=== PATIENT | male | born 1955 | race Caucasian/White ===

== ENCOUNTER 2016-11-02 15:28 | Emergency (ER) | payer BC ==
--- NOTE | 2016-11-02 15:32 | PDOC ---
History of Present Illness - General History Source: Patient Exam Limitations: No Limitations - History of Present Illness Initial Comments: 11/02/16 16:11 The patient is a 61 year old male with a significant past medical history of diverticulitis, appendicitis, cardiac stent, who presents to the ED with chest discomfort since this morning. Patient states he was eating breakfast this morning when he started experiencing throat pain. Patient states he started experiencing chest pain shortly after. Patient states the pain has dissipated upon interview. Patient denies SOB, ear pain, fever, cough, chills, nausea, vomiting, diarrhea. Patient states he had normal stress test done on Thursday. <Anatoliy Harding - Last Filed: 11/02/16 16:11> <Agnes Wheeler - Last Filed: 11/04/16 11:40> - General Chief Complaint: Chest Pain Stated Complaint: CHEST PAIN, COUGH,SORE THROAT Time Seen by Provider: 11/02/16 15:31 Past History <Anatoliy Harding - Last Filed: 11/02/16 16:11> - Past Medical History Anemia: No Asthma: No Cancer: No Cardiac Disorders: Yes (HX OF SOB HAD CARDIAC CATH WITH STENT X1) CVA: No COPD: No CHF: No Dementia: No Diabetes: No GI Disorders: Yes (DIVERTICULITIS) Disorders: No HTN: No Hypercholesterolemia: No Liver Disease: No Seizures: No Thyroid Disease: No - Surgical History Abdominal Surgery: Yes (COLON RESECTION FOR DIVERTICULITIS) Appendectomy: Yes Cardiac Surgery: Yes (CARDIAC CATH WITH STENT X1) Cholecystectomy: No Lung Surgery: No Neurologic Surgery: No Orthopedic Surgery: No - Psycho/Social/Smoking Cessation Hx Anxiety: No Suicidal Ideation: No Smoking Status: Yes Smoking History: Former smoker Have you smoked in the past 12 months: No Number of Cigarettes Smoked Daily: 20 Hx Alcohol Use: No Drug/Substance Use Hx: No Substance Use Type: None Hx Substance Use Treatment: No <Agnes Wheeler - Last Filed: 11/04/16 11:40> - Past Medical History Allergies/Adverse Reactions: Allergies Allergy/AdvReac Type Severity Reaction Status Date / Time Iodinated Contrast- Oral and Allergy Severe Hives Verified 11/02/16 15:28 IV Dye Home Medications: Ambulatory Orders NK [No Known Home Medication] 01/29/14 Review of Systems - Review of Systems Able to Perform ROS?: Yes Comments:: 11/02/16 16:12 GENERAL/CONSTITUTIONAL: No fever or chills. No weakness. HEAD, EYES, EARS, NOSE AND THROAT: + throat pain. No change in vision. No ear pain or discharge. CARDIOVASCULAR: + chest discomfort. No shortness of breath. RESPIRATORY: No cough, wheezing, or hemoptysis. GASTROINTESTINAL: No nausea, vomiting, diarrhea or constipation. GENITOURINARY: No dysuria, frequency, or change in urination. MUSCULOSKELETAL: No joint or muscle swelling or pain. No neck or back pain. SKIN: No rash NEUROLOGIC: No headache, vertigo, loss of consciousness, or change in strength/ sensation. ENDOCRINE: No increased thirst. No abnormal weight change. HEMATOLOGIC/LYMPHATIC: No anemia, easy bleeding, or history of blood clots. ALLERGIC/IMMUNOLOGIC: No hives or skin allergy. <Anatoliy Harding - Last Filed: 11/02/16 16:11> *Physical Exam - Vital Signs Last Vital Signs Temp Pulse Resp BP Pulse Ox 98.6 F 106 H 16 155/99 96 11/02/16 15:28 11/02/16 15:28 11/02/16 15:28 11/02/16 15:28 11/02/16 15:28 - Physical Exam Comments: 11/02/16 16:13 GENERAL: Awake, alert, and fully oriented, in no acute distress HEAD: No signs of trauma EYES: PERRLA, EOMI, sclera anicteric, conjunctiva clear ENT: Auricles normal inspection, hearing grossly normal, nares patent, oropharynx clear without exudates. Moist mucosa NECK: Normal ROM, supple, no lymphadenopathy, JVD, or masses LUNGS: Breath sounds equal, clear to auscultation bilaterally. No wheezes, and no crackles HEART: Regular rate and rhythm, normal S1 and S2, no murmurs, rubs or gallops ABDOMEN: Soft, nontender, normoactive bowel sounds. No guarding, no rebound. No masses EXTREMITIES: Normal range of motion, no edema. No clubbing or cyanosis. No cords, erythema, or tenderness NEUROLOGICAL: Cranial nerves II through XII grossly intact. Normal speech, normal gait SKIN: Warm, Dry, normal turgor, no rashes or lesions noted. <Anatoliy Harding - Last Filed: 11/02/16 16:11> ED Treatment Course - LABORATORY CBC & Chemistry Diagram: 11/02/16 16:25 11/02/16 16:25 <Agnes Wheeler - Last Filed: 11/04/16 11:40> Medical Decision Making - Medical Decision Making 11/02/16 18:24 Patient presents to the ED complaining of >6 hours of chest pain and sore throat that has now resolved. Chest pain is sharp, pleuritic and worse with movement of the torso. History of CAD but with negative stress test 4 months ago. LAbs, including troponin, are remarkable only for mild elevation in wBC count. EKG shows no evidence of ischemia. Tachycardia now resolving after toradol and fluids. Will discharge home. 11/04/16 11:39 <Agnes Wheeler - Last Filed: 11/04/16 11:40> *DC/Admit/Observation/Transfer - Attestations Scribe Attestion: 11/02/16 16:13 Documentation prepared by Anatoliy Harding, acting as medical pathology teacher for Agnes Wheeler MD, . <Anatoliy Harding - Last Filed: 11/02/16 16:11> - Discharge Dispostion Admit: No <Agnes Wheeler - Last Filed: 11/04/16 11:40> Diagnosis at time of Disposition: Chest pain - Discharge Dispostion Disposition: HOME Condition at time of disposition: Good - Patient Instructions Printed Discharge Instructions: DI for Atypical Chest Pain Additional Instructions: return to the ED for severe chest pain or shortness of breath, high fever, nausea, vomiting or passing out, other new or changing symptoms. Follow up with your doctor within two days. - Post Discharge Activity Work/School Note: Back to Work
[2016-11-02 15:35] VITALS: TEMP 98.6; BMI 27.2
[2016-11-02 16:54] LABS: ALBUMIN 4.1 g/dl (3.5-5.0); ALK PHOS 73 U/L (32-92); ANION GAP 7 (8-16); BILIRUBIN,TOTAL 0.8 mg/dl (0.2-1.0); CALCIUM 9.3 mg/dl (8.4-10.2); CO2 29 mmol/L (22-28); CPK 98 IU/L (39-308); CREATININE 1.3 mg/dl (0.6-1.3); GLUCOSE,RANDOM 252 mg/dl (74-106); SGOT/AST 21 U/L (10-42); SGPT/ALT 21 U/L (10-40); TOT PROT 7.2 g/dl (6.4-8.3)
[2016-11-02 16:56] LABS: BASOPHIL 0.3 % (0-2.0); EOSINOPHIL 0.5 % (0-4.5); MCH 31.8 pg (25.7-33.7); MCHC 34.9 g/dl (32.0-35.9); MEAN CELL VOLUME 91.1 fl (80-96); MEAN PLT VOLUME 7.3 fl (7.5-11.1); NEUTROPHILS 80.9 % (42.8-82.8); PLATELET COUNT 309 K/MM3 (134-434); WHITE BLOOD COUNT 13.2 K/mm3 (4.0-10.8)
[2016-11-02 17:09] LABS: TROPONIN I (DFP) < 0.03 ng/ml (0.03-0.50)
[2016-11-02] MEDS ORDERED: SODIUM CHLORIDE 0.9% 1000 ML INFUS.BAG IV ONE (17:15)
[2016-11-02] MEDS ORDERED: KETOROLAC TROMETHAMINE 30 MG/1 ML VIAL IVPUSH ONE (17:33)
[2016-11-02] MEDS ORDERED: KETOROLAC TROMETHAMINE 30 MG/1 ML VIAL ONE (17:37)
[2016-11-02 19:06] VITALS: BP 132/58; PULSE 98
--- NOTE | 2016-11-04 14:04 | EKG ---
Test Reason : Blood Pressure : / mmHG Vent. Rate : 104 BPM Atrial Rate : 104 BPM P-R Int : 130 ms QRS Dur : 090 ms QT Int : 336 ms P-R-T Axes : 039 -06 045 degrees QTc Int : 441 ms SINUS TACHYCARDIA MINIMAL VOLTAGE CRITERIA FOR LVH, MAY BE NORMAL VARIANT BORDERLINE ECG NO PREVIOUS ECGS AVAILABLE REPEAT EKG IF CLINICALLY INDICATED Confirmed by SEVERO RHOADES MD ([id number] on 11/04/2016 2:03:41 PM Referred By: KEISHA Confirmed By:SEVERO RHOADES MD
== END 2016-11-02 19:05 | disposition home or self-care (01) ==
LOC: FER 15:28
PROC: 3E0333Z Introduction of Anti-inflammatory into Peripheral Vein, Percutaneous Approach (ICD-10-PCS; principal; 2016-11-02)
PROC: 3E0337Z Introduction of Electrolytic and Water Balance Substance into Peripheral Vein, Percutaneous Approach (ICD-10-PCS; 2016-11-02)
DX: R07.89 Other chest pain (principal); Z95.5 Presence of coronary angioplasty implant and graft; K57.92 Diverticulitis of intestine, part unspecified, without perforation or abscess without bleeding; Z87.891 Personal history of nicotine dependence
CPT/HCPCS: 36415; 71020-TC; 80053; 84484; 85025; 93005; 93010; 99285-25

== ENCOUNTER 2018-01-12 00:41 | Observation (INO) | payer BC ==
--- NOTE | 2018-01-12 00:43 | PDOC ---
History of Present Illness - General Chief Complaint: Pain, Acute Stated Complaint: PRODUCTIVE COUGH/ CHEST PAIN Time Seen by Provider: 01/12/18 00:42 History Source: Patient Exam Limitations: No Limitations - History of Present Illness Initial Comments: 01/12/18 00:53 This is a 62-year-old male with history significant for hypertension, diabetes , smoking history, coronary artery disease status post stent in the past. Patient comes in complaining of 2 days of not feeling well. Patient is complaining of midsternal chest pain associated with some nausea and difficulty breathing. Patient also is complaining of nasal congestion, recent upper respiratory tract infection, cough of productive yellow phlegm. Patient has a history of COPD. Patient is very anxious on arrival in the emergency room and crying and visibly upset. Patient said the pain is worse when he coughs or takes a deep breath. PAST MEDICAL HISTORY: As per history of present illness PAST SURGICAL HISTORY: no significant history FAMILY HISTORY: no pertinant history SOCIAL HISTORY: Pt lives with family and is employed. MEDICATIONS: reviewed ALLERGIES: As per nursing notes ROS General: No fevers or chills, no weakness, no weight loss HEENT: No change in vision. No sore throat,. No ear pain CardioVascular: + chest pain, +shortness of breath Respiratory:+ cough, no wheezing. Gastrointestinal: + nausea, + vomiting, no diarrhea or constipation, No rectal bleeding Genitourinary: No dysuria, hematuria, or frequency Musculoskeletal: . No joint pain or swelling Neurologic: No headache, vertigo, dizziness or loss of consciousness Psychiatric: nor depression Skin: No rashes or easy bruising Endocrine: no increased thirst or abnormal weight change Allergic: no skin or latex allergy All other systems reviewed and normal Exam: General: Well-nourished well-developed individual, moderately acute distress and very anxious HEENT: Throat: Normal, tonsils normal, no erythema or exudate, nasal congestion Neck: Supple, no meningeal signs, no lymphadenopathy Eyes::Pupils equal reactive and round, extraocular motion intact Chest: Pain reproduced on palpation of the anterior chest Cardiac: S1-S2 normal, regular rate and rhythm, no murmurs rubs or gallops, mild tachycardia Respiratory: Lungs clear to auscultation bilateral Abdomen: Soft, nondistended, normal bowel sounds, there is no tenderness on palpation diffusely Extremities: Warm, dry, no cyanosis, clubbing, or edema Skin: No rashes Neuro: Alert and oriented x3, CN II - XII intact, nonfocal exam with normal strength, normal sensation, normal reflexes, normal gait, Psych: Anxious mood, normal affect Assessment and plan: This is 62-year-old male with multiple cardiac risk factors who comes in complaining of chest pain, nausea and shortness of breath. Patient does have multiple risk factors and his heart squares 4. Pain and symptoms resolved post-some Xanax so most likely there was a large anxiety component of it however patient will be brought in to a telemetry bed to be ruled out. EKG shows sinus tachycardia at a rate of 120, normal intervals, no acute ST-T wave changes otherwise normal EKG Chest x-ray no acute pathology Past History - Past Medical History Allergies/Adverse Reactions: Allergies Allergy/AdvReac Type Severity Reaction Status Date / Time Iodinated Contrast- Oral and Allergy Severe Hives Verified 01/12/18 00:43 IV Dye Home Medications: Ambulatory Orders Albuterol Sulfate Inhaler - [Ventolin Hfa Inhaler -] 1 - 2 inh PO QID 01/12/18 Atorvastatin Ca [Lipitor] 10 mg PO HS 01/12/18 Doxazosin Mesylate 2 mg PO DAILY 01/12/18 Doxycycline Hyclate 100 mg PO DAILY 01/12/18 Glipizide 10 mg PO DAILY 01/12/18 Anemia: No Asthma: No Cancer: No Cardiac Disorders: Yes (HX OF SOB HAD CARDIAC CATH WITH STENT X1) CVA: No COPD: No CHF: No Dementia: No Diabetes: No GI Disorders: Yes (DIVERTICULITIS) Disorders: No HTN: No Hypercholesterolemia: No Liver Disease: No Seizures: No Thyroid Disease: No - Surgical History Abdominal Surgery: Yes (COLON RESECTION FOR DIVERTICULITIS) Appendectomy: Yes Cardiac Surgery: Yes (CARDIAC CATH WITH STENT X1) Cholecystectomy: No Lung Surgery: No Neurologic Surgery: No Orthopedic Surgery: No - Suicide/Smoking/Psychosocial Hx Smoking Status: Yes Smoking History: Former smoker Have you smoked in the past 12 months: No Number of Cigarettes Smoked Daily: 20 If you are a former smoker, when did you quit?: 12 yrs ago Hx Alcohol Use: No Drug/Substance Use Hx: No Substance Use Type: None Hx Substance Use Treatment: No Heart Score/ECG Review - History History: Moderately suspicious - Electrocardiogram EKG: Normal - Age Age: 45-65 - Risk Factors Risk Factors Heart Score: Yes Hx Hypercholesterolemia, Yes Hx Diabetes, Yes Smoking History, Yes Positive family hx of cardiac disease Based on the list above the patient has:: >/=3 risk factors or Hx atherosclerotic disease - Troponin Troponin: </= normal limit - Score Heart Score - Total: 4 ED Treatment Course - LABORATORY CBC & Chemistry Diagram: 01/12/18 01:06 01/12/18 01:06 *DC/Admit/Observation/Transfer Diagnosis at time of Disposition: Chest pain - Discharge Dispostion Condition at time of disposition: Stable Decision to Admit order: Yes - Referrals Referrals: Nazia Corea [Primary Care Provider] - - Patient Instructions - Post Discharge Activity
[2018-01-12] MEDS ORDERED: ALPRAZolam 1 MG TABLET PO PRN (00:52)
[2018-01-12] MEDS ORDERED: ONDANSETRON 4 MG/2 ML VIAL IVPB ONE (00:52)
[2018-01-12] MEDS ORDERED: SODIUM CHLORIDE 1,000 ML IV ONE (00:52)
[2018-01-12] MEDS ORDERED: ONDANSETRON 4 MG/2 ML VIAL ONE (02:10)
[2018-01-12] MEDS ORDERED: ALPRAZolam 0.25 MG TABLET ONE (02:10)
[2018-01-12] MEDS ORDERED: ALPRAZolam 1 MG TABLET PO STA (02:19)
[2018-01-12 02:48] LABS: BASO % 0.2 % (0-2.0); EOS % 1.4 % (0-4.5); HEMATOCRIT 45.3 % (35.4-49); HEMOGLOBIN 15.4 GM/dL (11.7-16.9); LYMPH % 11.8 % (8-40); MEAN CELL VOLUME 91.1 fl (80-96); MEAN PLT VOLUME 7.7 fl (7.5-11.1); MONO % 11.3 % (3.8-10.2); NEUT % 75.3 % (42.8-82.8); PLATELET COUNT 220 K/MM3 (134-434); RBC 4.98 M/mm3 (4.00-5.60); RDW 13.3 % (11.9-15.9); WHITE BLOOD COUNT 9.5 K/mm3 (4.0-10.0)
[2018-01-12 03:19] LABS: ALBUMIN 3.5 g/dl (3.4-5.0); ALK PHOS 78 U/L (45-117); ANION GAP 8 MMOL/L (8-16); BILIRUBIN,TOTAL 0.7 mg/dL (0.2-1); BLOOD UREA NITROGEN 13 mg/dL (7-18); CALCIUM 8.5 mg/dL (8.5-10.1); CHLORIDE 106 mmol/L (98-107); CO2 25 mmol/L (21-32); CREATININE 1.2 mg/dL (0.55-1.3); GLUCOSE,RANDOM 198 mg/dL (74-106); SGOT/AST 17 U/L (15-37); SGPT/ALT 28 U/L (13-61); SODIUM 138 mmol/L (136-145); TOT PROT 6.7 g/dl (6.4-8.2)
[2018-01-12] MEDS ORDERED: ASPIRIN 81 MG CHEWABLE TABLETS PO ONE (04:05)
[2018-01-12 04:55] VITALS: BMI 28.2
--- NOTE | 2018-01-12 08:20 | HP ---
CHIEF COMPLAINT: cough and chest pain PCP: Dr Corea rubber process hand: Dr Benítez HISTORY OF PRESENT ILLNESS: Patient is a 62 y/o obese male with a past medical history of copd (former smoker), diverticulitis, CAD (s/p stent), and hypertension. Patient reports 3 days of moist cough and tactile fever. Patient reports the cough has worsened within the past 24 hours with substernal non-radiating chest pain and shortness of breath. He reports tactile fever yesterday evening. ER course was notable for: (1)chest xray: no infilitrate no effusions noted (2)troponin x 1 wnl (3)spo2 93% on room air Recent Travel: none PAST MEDICAL HISTORY: see hpi PAST SURGICAL HISTORY: rotar cuff, perirectal abscess surgery Social History: resides at home with Smoking:quit 13 years ago Alcohol:none Drugs: none Family History: mother and father -->complications from diabetes Allergies Iodinated Contrast- Oral and IV Dye Allergy (Severe, Verified 01/12/18 00:43) Hives HOME MEDICATIONS: Home Medications Medication Instructions Recorded Albuterol Sulfate Inhaler - 1 - 2 inh PO QID 01/12/18 [Ventolin Hfa Inhaler -] Atorvastatin Ca [Lipitor] 10 mg PO HS 01/12/18 Doxazosin Mesylate 2 mg PO DAILY 01/12/18 Doxycycline Hyclate 100 mg PO DAILY 01/12/18 Glipizide 10 mg PO DAILY 01/12/18 REVIEW OF SYSTEMS CONSTITUTIONAL: present: fever, chills, diaphoresis, generalized weakness, malaise Absent: loss of appetite, weight change HEENT: Absent: rhinorrhea, nasal congestion, throat pain, throat swelling, difficulty swallowing, mouth swelling, ear pain, eye pain, visual changes CARDIOVASCULAR: present: chest pain Absent: syncope, palpitations, irregular heart rate, lightheadedness, peripheral edema RESPIRATORY: Present: cough, shortness of breath, wheezing Absent: dyspnea with exertion, orthopnea, stridor, hemoptysis GASTROINTESTINAL: Absent: abdominal pain, abdominal distension, nausea, vomiting, diarrhea, constipation, melena, hematochezia GENITOURINARY: Absent: dysuria, frequency, urgency, hesitancy, hematuria, flank pain, genital pain MUSCULOSKELETAL: Absent: myalgia, arthralgia, joint swelling, back pain, neck pain SKIN: Absent: rash, itching, pallor HEMATOLOGIC/IMMUNOLOGIC: Absent: easy bleeding, easy bruising, lymphadenopathy, frequent infections ENDOCRINE: Absent: unexplained weight gain, unexplained weight loss, heat intolerance, cold intolerance NEUROLOGIC: Absent: headache, focal weakness or paresthesias, dizziness, unsteady gait, seizure, mental status changes, bladder or bowel incontinence PSYCHIATRIC: Absent: anxiety, depression, suicidal or homicidal ideation, hallucinations. PHYSICAL EXAMINATION Vital Signs - 24 hr 01/12/18 01/12/18 01/12/18 00:44 03:35 03:48 Temperature 98.8 F 98.5 F 98.4 F Pulse Rate 120 H 93 H Pulse Rate [ 106 H Left] Respiratory 18 15 18 Rate Blood Pressure 134/87 116/66 Blood Pressure 121/66 [Right] O2 Sat by Pulse 93 L 93 L Oximetry (%) 01/12/18 04:46 Temperature 98.7 F Pulse Rate 105 H Pulse Rate [ Left] Respiratory 19 Rate Blood Pressure 105/70 Blood Pressure [Right] O2 Sat by Pulse 96 Oximetry (%) GENERAL: Awake, alert, and fully oriented, in no acute distress. HEAD: Normal with no signs of trauma. EYES: Pupils equal, round and reactive to light, extraocular movements intact, sclera anicteric, conjunctiva clear. No lid lag. EARS, NOSE, THROAT: Ears normal, nares patent, oropharynx clear without exudates. Moist mucous membranes. NECK: Normal range of motion, supple without lymphadenopathy, JVD, or masses. LUNGS:course rhonchi to apexes, wheezing to billateral bases, and no crackles. No accessory muscle use. HEART: Regular rate and rhythm, normal S1 and S2 without murmur, rub or gallop. ABDOMEN: Soft, nontender, not distended, normoactive bowel sounds, no guarding, no rebound, no masses. No hepatomegaly or splenomegaly. MUSCULOSKELETAL: Normal range of motion at all joints. No bony deformities or tenderness. No CVA tenderness. UPPER EXTREMITIES: 2+ pulses, warm, well-perfused. No cyanosis. No clubbing. No peripheral edema. LOWER EXTREMITIES: 2+ pulses, warm, well-perfused. No calf tenderness. No peripheral edema. NEUROLOGICAL: Cranial nerves II-XII intact. Normal speech. Normal gait. PSYCHIATRIC: Cooperative. Good eye contact. Appropriate mood and affect. SKIN: Warm, dry, normal turgor, no rashes or lesions noted, normal capillary refill. Laboratory Results - last 24 hr 01/12/18 01/12/18 01/12/18 01:06 01:06 03:35 WBC 9.5 RBC 4.98 Hgb 15.4 Hct 45.3 MCV 91.1 MCH 31.0 MCHC 34.0 RDW 13.3 Plt Count 220 MPV 7.7 Absolute Neuts (auto) 7.1 Neutrophils % 75.3 Lymphocytes % 11.8 Monocytes % 11.3 H Eosinophils % 1.4 Basophils % 0.2 Nucleated RBC % 0 Sodium 138 Potassium 4.0 Chloride 106 Carbon Dioxide 25 Anion Gap 8 BUN 13 Creatinine 1.2 Creat Clearance w eGFR > 60 Random Glucose 198 H Calcium 8.5 Total Bilirubin 0.7 AST 17 ALT 28 Alkaline Phosphatase 78 Creatine Kinase 194 Creatine Kinase Index 0.5 CK-MB (CK-2) < 1.0 Troponin I < 0.02 B-Natriuretic Peptide 34.4 Total Protein 6.7 Albumin 3.5 ASSESSMENT/PLAN: 1) pulm copd exacerbation - wheezing noted on exam, start standing combivent nebs and solumedrol with taper - chest xray reviewed, no infilitrates no effusion noted, hx of tobacco use, will order ct of chest - keep spo2 above 92% with supplemental O2 as needed - pending influenza swab 2) cardiovascular chest pain r/o acs cad (s/p stent) hypertension - pt reports chest discomfort after coughing, troponin x 2 wnl, pending 3rd - continuous cardiac monitoring - continue doxazosin - pending lipid panel, continue daily asa - appreciate cardiology input 3) endo DM - pending hgb a1c - continue glipizide f/e/n - low sodium/diabetic diet - replete magnesium dispo: pt requires obsv admission Visit type - Emergency Visit Emergency Visit: Yes ED Registration Date: 01/12/18 Care time: The patient presented to the Emergency Department on the above date and was hospitalized for further evaluation of their emergent condition. - New Patient This patient is new to me today: Yes Date on this admission: 01/12/18 - Critical Care Critical Care patient: No
[2018-01-12] MEDS: glipiZIDE 5 MG TABLET (FP) PO SCH (08:33)
[2018-01-12 08:53] LABS: BASO % 0.1 % (0-2.0); HEMOGLOBIN 14.1 GM/dl (11.7-16.9); LYMPH % 16.7 % (8-40); MCH 31.9 pg (25.7-33.7); MCHC 34.5 g/dl (32.0-35.9); MEAN CELL VOLUME 92.5 fl (80-96); MEAN PLT VOLUME 7.5 fl (7.5-11.1); MONO % 11.3 % (3.8-10.2); NEUT % 69.9 % (42.8-82.8); PLATELET COUNT 194 K/MM3 (134-434); RBC 4.43 M/mm3 (4.00-5.60); RDW 12.6 % (11.9-15.9); WHITE BLOOD COUNT 7.5 K/mm3 (4.0-10.8)
[2018-01-12 09:06] LABS: ANION GAP 7 MMOL/L (8-16); BLOOD UREA NITROGEN 11 mg/dl (7-18); CHLORIDE 105 mmol/L (98-107); CO2 26 mmol/L (22-28); GLUCOSE,RANDOM 115 mg/dl (74-106); MAGNESIUM 1.5 mg/dL (1.8-2.4); PHOSPHOROUS 2.9 mg/dl (2.5-4.6); POTASSIUM 3.5 mmol/L (3.5-5.1); SODIUM 138 mmol/L (136-145)
[2018-01-12] MEDS ORDERED: MAGNESIUM SULFATE 2 GM in SODIUM CHLORIDE 100 ML IVPB ONE (09:19)
[2018-01-12 09:37] LABS: CHOLESTEROL 128 mg/dl; HDL CHOLESTEROL 40 mg/dl (29-89); LDL CHOLESTEROL (ONLY DFH) 68 mg/dl; TRIGLYCERIDES 102 mg/dl (35-160)
[2018-01-12] MEDS ORDERED: ACETAMINOPHEN 1000 MG/100 ML VIAL (NON FORMULARY) IVPB ONE (09:45)
[2018-01-12] MEDS ORDERED: MAGNESIUM SULFATE IN WATER 2 GM/50 ML IVPB IVPB ONE (10:00)
[2018-01-12] MEDS ORDERED: SODIUM CHLORIDE 0.45%/POT 20 MEQ/1,000 ML INFUS.BAG IV SCH (10:45)
[2018-01-12] MEDS: ALBUTEROL SO4 2.5/IPRATROPIUM 0.5 INH SOL 3 ML VIAL.NEB. NEB SCH ×3 (10:51→21:23)
[2018-01-12] MEDS: DOXAZOSIN MESYLATE 2 MG TABLET (FP) PO SCH (10:56)
[2018-01-12] MEDS: methylPREDNISolone NA SUCC 40 MG/1 ML VIAL IVPUSH SCH ×2 (12:00→17:19)
[2018-01-12 12:39] LABS: INR 1.16 (0.82-1.09)
--- NOTE | 2018-01-12 15:18 | ECHO ---
Name: FRANCISCO ELLEN Exam:Adult Echocardiogram Study Date: 01/12/2018 09:30 AM Age: 62 yrs Reason For Study: Chest pain Height: 67 in Weight: 185 lb BSA: 2.0 m2 MMode/2D Measurements & Calculations IVSd: 0.88 cm Ao root diam: 3.0 cm LVIDd: 4.8 cm LA dimension: 3.3 cm LVIDs: 3.1 cm LVPWd: 0.83 cm EDV(Teich): 109.6 ml ESV(Teich): 39.2 ml Doppler Measurements & Calculations MV E max diane: 71.1 cm/sec MV A max diane: 92.4 cm/sec MV dec slope: 515.5 cm/sec2 MV E/A: 0.77 Ao V2 max: 127.2 cm/sec LV V1 max P.0 mmHg Ao max P.5 mmHg LV V1 max: 86.4 cm/sec Procedure The study was technically difficult with many images being suboptimal in quality. Left Ventricle The left ventricular size, thickness and function are normal. LVEF = 60%. E/A reversal consistent wit h but not diagnostic of poor LV compliance. Right Ventricle The right ventricle is normal in size and function. Atria The left atrium is not well visualized. Mitral Valve The mitral valve is normal. Tricuspid Valve The tricuspid valve is normal. No tricuspid regurgitation. There was insufficient TR detected to calc ulate RV systolic pressure. Aortic Valve There is moderate aortic sclerosis.;. Pulmonic Valve The pulmonic valve is not well visualized. Great Vessels The aortic root is normal size. Pericardium/Pleura There is no pericardial effusion. Interpretation Summary The study was technically difficult with many images being suboptimal in quality. The left ventricular size, thickness and function are normal. LVEF = 60%. The right ventricle is normal in size and function. The left atrium is not well visualized. There is moderate aortic sclerosis.; The mitral valve is normal. MD Missy Benítez 01/12/2018 03:18 PM
[2018-01-12 15:31] LABS: URINE APPEARANCE Clear; URINE BILIRUBIN Negative (NEGATIVE); URINE COLOR Amber; URINE GLUCOSE (UA) Trace (NEGATIVE); URINE KETONE Negative (NEGATIVE); URINE LEUK ESTERASE Negative (NEGATIVE); URINE NITRITE Negative (NEGATIVE); URINE PROTEIN Negative (NEGATIVE)
--- NOTE | 2018-01-12 16:11 | EKG ---
Test Reason : Blood Pressure : / mmHG Vent. Rate : 120 BPM Atrial Rate : 120 BPM P-R Int : 128 ms QRS Dur : 084 ms QT Int : 314 ms P-R-T Axes : 044 -09 040 degrees QTc Int : 443 ms SINUS TACHYCARDIA OTHERWISE NORMAL ECG WHEN COMPARED WITH ECG OF 02-NOV-2016 15:33, NO SIGNIFICANT CHANGE WAS FOUND Confirmed by MD JOSH, WILY ([id number]) on 01/12/2018 4:11:34 PM Referred By: DR AVALOS Confirmed By:WILY MORENO MD
[2018-01-12] MEDS: INSULIN SLIDING SCALE (NOVOLOG) 1 VIAL SQ SCH ×2 (16:57→21:25)
[2018-01-12] MEDS ORDERED: ATORVASTATIN CA 10 MG TABLET (FP) PO SCH (22:00)
[2018-01-13] MEDS: methylPREDNISolone NA SUCC 40 MG/1 ML VIAL IVPUSH SCH ×2 (03:22→09:54)
[2018-01-13] MEDS: ALBUTEROL SO4 2.5/IPRATROPIUM 0.5 INH SOL 3 ML VIAL.NEB. NEB SCH ×2 (03:22→09:56)
[2018-01-13 06:57] VITALS: TEMP 97.5
[2018-01-13] MEDS: INSULIN SLIDING SCALE (NOVOLOG) 1 VIAL SQ SCH ×2 (06:58→11:59)
[2018-01-13] MEDS: glipiZIDE 5 MG TABLET (FP) PO SCH (06:59)
--- NOTE | 2018-01-13 08:47 | CON.CARD ---
Consult Consult Specialty:: Cardiology Referred by:: Hospitalist Medicine Reason for Consultation:: Chest pain - History of Present Illness Chief Complaint: Chest pain History of Present Illness: cc: cough and chest pain PCP: Dr Corea railcar carpenter: Dr Benítez HISTORY OF PRESENT ILLNESS: Patient is a 62 y/o obese male with a past medical history of copd (former smoker), diverticulitis, CAD (s/p stent), Type 2 DM, and hypertension. Patient reports 3 days of cough productive of yellow sputum, nasal congestion and tactile fever. Patient reports the cough has worsened within the past 24 hours with substernal non-radiating pleuritic and post- tussive chest pain and shortness of breath improved since admission with bronchodilators. Reported having stress test 7 months ago negative for ischemia. - History Source History Provided By: Patient Limitations to Obtaining History: No Limitations - Alcohol/Substance Use Hx Alcohol Use: No - Smoking History Smoking history: Former smoker Have you smoked in the past 12 months: No Aproximately how many cigarettes per day: 20 If you are a former smoker, when did you quit?: 12 yrs ago Home Medications - Allergies Allergies/Adverse Reactions: Allergies Allergy/AdvReac Type Severity Reaction Status Date / Time Iodinated Contrast- Oral and Allergy Severe Hives Verified 01/12/18 00:43 IV Dye egg AdvReac Intermediate Nausea Verified 01/12/18 10:14 - Home Medications Home Medications: Ambulatory Orders Albuterol Sulfate Inhaler - [Ventolin Hfa Inhaler -] 1 - 2 inh PO QID 01/12/18 Atorvastatin Ca [Lipitor] 10 mg PO HS 01/12/18 Doxazosin Mesylate 2 mg PO DAILY 01/12/18 Doxycycline Hyclate 100 mg PO DAILY 01/12/18 Glipizide 10 mg PO DAILY 01/12/18 Omeprazole Magnesium [Prilosec] 10 mg PO DAILY 01/12/18 Review of Systems - Review of Systems HENT: reports: No Symptoms Cardiovascular: reports: Chest Pain Respiratory: reports: Cough, SOB, Wheezing Gastrointestinal: reports: No Symptoms Genitourinary: reports: No Symptoms Musculoskeletal: reports: No Symptoms Vital Signs: Vital Signs Temperature 97.5 F L 01/13/18 06:00 Pulse Rate 98 H 01/13/18 06:00 Respiratory Rate 18 01/13/18 06:00 Blood Pressure 117/56 L 01/13/18 06:00 O2 Sat by Pulse Oximetry (%) 94 L 01/13/18 08:02 Constitutional: Yes: No Distress, Calm Neck: Yes: Supple Respiratory: Yes: Regular, CTA Bilaterally Gastrointestinal: Yes: Normal Bowel Sounds, Soft Cardiovascular: Yes: Regular Rate and Rhythm, Tachycardia JVD: No Carotid Bruit: No Heart Sounds: Yes: S1, S2 Edema: No - Other Data Labs, Other Data: CBC, BMP 01/12/18 07:56 01/12/18 07:56 INR, PTT INR 1.16 (0.82-1.09) 01/12/18 11:51 Troponin, BNP 01/12/18 01/12/18 07:56 11:51 Troponin I < 0.03 < 0.03 Troponin, BNP 01/12/18 01/12/18 07:56 11:51 Troponin I < 0.03 < 0.03 Imaging - Results Chest X-ray: Report Reviewed (NAD) Cat Scan: Report Reviewed (Mod chronic lung disease o/w NAD) Problem List - Problems (1) Atypical chest pain Code(s): R07.89 - OTHER CHEST PAIN (2) Hyperlipidemia Code(s): E78.5 - HYPERLIPIDEMIA, UNSPECIFIED Qualifiers: Hyperlipidemia type: pure hypercholesterolemia Qualified Code(s): E78.00 - Pure hypercholesterolemia, unspecified; E78.0 - Pure hypercholesterolemia (3) S/P coronary artery stent placement Code(s): Z95.5 - PRESENCE OF CORONARY ANGIOPLASTY IMPLANT AND GRAFT (4) Coronary artery disease Code(s): I25.10 - ATHSCL HEART DISEASE OF [place] CORONARY ARTERY W/O ANG PCTRS Qualifiers: Coronary Disease-Associated Artery/Lesion type: [place] artery [place] vs. transplanted heart: [place] heart Associated angina: without angina Qualified Code(s): I25.10 - Atherosclerotic heart disease of [place] coronary artery without angina pectoris (5) Type 2 diabetes mellitus Code(s): E11.9 - TYPE 2 DIABETES MELLITUS WITHOUT COMPLICATIONS Qualifiers: Diabetes mellitus correction insulin use: without correction use Diabetes mellitus complication status: without complication Qualified Code(s): E11.9 - Type 2 diabetes mellitus without complications Assessment/Plan 01/12/2018 Echo: Normal biventricular size and fxn without sig valve abnl 1. Atypical post-tussive and pleuritic chest pain syndrome referable to AE COPD 2. CAD s/p stent 3. HTN 4. Hyperlipidemia 5. Type 2 DM P: 1. Ruled out for OK 2. BD, steroid taper, O2 as needed 3. Check outpatient records from Dr. Benítez office to reconcile medication regimen 4. Thank you for consultative opportunity
[2018-01-13] MEDS: DOXAZOSIN MESYLATE 2 MG TABLET (FP) PO SCH (09:58)
[2018-01-13] MEDS ORDERED: ASPIRIN 81 MG CHEWABLE TABLETS PO SCH (10:00)
[2018-01-13] MEDS ORDERED: BUDESONIDE/FORMETEROL FUMARATE 80/4.5 mcg INHALER IH SCH (10:00)
[2018-01-13] MEDS ORDERED: FLUTICASONE PROP 0.05% 16 GM NASAL SPRAY NS SCH (10:00)
[2018-01-13 10:06] VITALS: BP 108/58; PULSE 108
--- NOTE | 2018-01-13 10:13 | DS ---
Physical Exam: SUBJECTIVE: Patient seen and examined, sitting in bed, tolerating diet, denies any chest pain or shortness of breath, reports improvement of productive cough, denies any tactile fever OBJECTIVE:Patient is a 62 y/o obese male with a past medical history of copd ( former smoker), diverticulitis, CAD (s/p stent), and hypertension. Patient reports 3 days of moist cough and tactile fever. Patient reports the cough has worsened within the past 24 hours with substernal non-radiating chest pain and shortness of breath. He reports tactile fever yesterday evening. ER course was notable for: (1)chest xray: no infilitrate no effusions noted (2)troponin x 1 wnl (3)spo2 93% on room air Vital Signs Period Temp Pulse Resp BP Sys/Wright Pulse Ox Last 24 Hr 97.5 F-98.3 F 87-108 16-18 100-117/51-59 90-96 PHYSICAL EXAM GENERAL: The patient is awake, alert, and fully oriented, in no acute distress. HEAD: Normal with no signs of trauma. EYES: PERRL, extraocular movements intact, sclera anicteric, conjunctiva clear. ENT: Ears normal, nares patent, oropharynx clear without exudates, moist mucous membranes. NECK: Trachea midline, full range of motion, supple. LUNGS: Breath sounds equal, clear to auscultation bilaterally to apexes, diminished to bases, no wheezes, no crackles, no accessory muscle use. HEART: Regular rate and rhythm, S1, S2 without murmur, rub or gallop. ABDOMEN: Soft, nontender, nondistended, normoactive bowel sounds, no guarding, no rebound, no hepatosplenomegaly, no masses. EXTREMITIES: 2+ pulses, warm, well-perfused, no edema. NEUROLOGICAL: Cranial nerves II through XII grossly intact. Normal speech, gait not observed. PSYCH: Normal mood, normal affect. SKIN: Warm, dry, normal turgor, no rashes or lesions noted. LABS Laboratory Results - last 24 hr 01/12/18 01/12/18 01/12/18 10:30 11:51 11:51 PT with INR 13.0 INR 1.16 D-Dimer POC Glucometer Troponin I < 0.03 Urine Color Irene Urine Appearance Clear Urine pH 6.0 Ur Specific [place] 1.015 Urine Protein Negative Urine Glucose (UA) Trace Urine Ketones Negative Urine Blood Negative Urine Nitrite Negative Urine Bilirubin Negative Urine Urobilinogen 1.0 Ur Leukocyte Esterase Negative 01/12/18 01/12/18 01/12/18 11:51 11:51 16:39 PT with INR INR D-Dimer 1181 H POC Glucometer 154 198 Troponin I Urine Color Urine Appearance Urine pH Ur Specific [place] Urine Protein Urine Glucose (UA) Urine Ketones Urine Blood Urine Nitrite Urine Bilirubin Urine Urobilinogen Ur Leukocyte Esterase 01/12/18 01/13/18 21:21 06:57 PT with INR INR D-Dimer POC Glucometer 303 200 Troponin I Urine Color Urine Appearance Urine pH Ur Specific [place] Urine Protein Urine Glucose (UA) Urine Ketones Urine Blood Urine Nitrite Urine Bilirubin Urine Urobilinogen Ur Leukocyte Esterase Microbiology 01/12/18 03:35 Blood - Peripheral Venous Blood Culture - Preliminary NO GROWTH OBTAINED AFTER 24 HOURS, INCUBATION TO CONTINUE FOR 4 DAYS. 01/12/18 03:35 Blood - Peripheral Venous Blood Culture - Preliminary NO GROWTH OBTAINED AFTER 24 HOURS, INCUBATION TO CONTINUE FOR 4 DAYS. 01/12/18 11:00 Nasopharyngeal Swab Influenza Types A,B Antigen - Final, negative 01/12/18 11:00 Nasopharyngeal Swab - Final, negative IMAGING chest ct: moderate chronic disease, with no evidence of acute pathology echo: lvef 60-65% HOSPITAL COURSE: 1) pulm copd exacerbation - wheezing noted on exam, start standing combivent nebs and solumedrol with taper - chest xray reviewed, no infilitrates no effusion noted, hx of tobacco use, will order ct of chest - keep spo2 above 92% with supplemental O2 as needed - pending influenza swab 2) cardiovascular chest pain r/o acs cad (s/p stent) hypertension - pt reports chest discomfort after coughing, troponin x 2 wnl, pending 3rd - continuous cardiac monitoring - continue doxazosin - pending lipid panel, continue daily asa - appreciate cardiology input 3) endo DM - pending hgb a1c - continue glipizide Date of Admission:01/12/18 Date of Discharge: 01/13/18 Discharge Summary Reason For Visit: PRODUCTIVE COUGH/ CHEST PAIN Current Active Problems Atypical chest pain (Acute) Chest pain (Acute) Coronary artery disease (Acute) Hyperlipidemia (Acute) S/P coronary artery stent placement (Acute) Type 2 diabetes mellitus (Acute) Condition: Stable - Instructions Referrals: Brill,Jordan, MD [Staff Physician] - Nazia Corea [Primary Care Provider] - Disposition: HOME - Home Medications Comprehensive Discharge Medication List: Ambulatory Orders Albuterol Sulfate Inhaler - [Ventolin Hfa Inhaler -] 1 - 2 inh PO QID 01/12/18 Atorvastatin Ca [Lipitor] 10 mg PO HS 01/12/18 Doxazosin Mesylate 2 mg PO DAILY 01/12/18 Doxycycline Hyclate 100 mg PO DAILY 01/12/18 Glipizide 10 mg PO DAILY 01/12/18 Omeprazole Magnesium [Prilosec] 10 mg PO DAILY 01/12/18
== END 2018-01-13 12:02 | disposition home or self-care (01) ==
LOC: FER 00:41 → FM/S 03:30 → UNDOADMOB 03:44 → FM/S 03:44
PROVIDERS: ADMIT Internal Medicine; ATTEND Nurse Practitioner Family
PROC: 3E0333Z Introduction of Anti-inflammatory into Peripheral Vein, Percutaneous Approach (ICD-10-PCS; principal; 2018-01-12)
PROC: 3E033NZ Introduction of Analgesics, Hypnotics, Sedatives into Peripheral Vein, Percutaneous Approach (ICD-10-PCS; 2018-01-12)
PROC: 3E0337Z Introduction of Electrolytic and Water Balance Substance into Peripheral Vein, Percutaneous Approach (ICD-10-PCS; 2018-01-12)
PROC: 3E033GC Introduction of Other Therapeutic Substance into Peripheral Vein, Percutaneous Approach (ICD-10-PCS; 2018-01-12)
PROC: 3E0F7GC Introduction of Other Therapeutic Substance into Respiratory Tract, Via Natural or Artificial Opening (ICD-10-PCS; 2018-01-12)
DX: R07.89 Other chest pain (principal); J44.1 Chronic obstructive pulmonary disease with (acute) exacerbation; I10 Essential (primary) hypertension; E11.9 Type 2 diabetes mellitus without complications; I25.10 Atherosclerotic heart disease of native coronary artery without angina pectoris; E78.5 Hyperlipidemia, unspecified; Z95.5 Presence of coronary angioplasty implant and graft; Z87.891 Personal history of nicotine dependence; Z91.041 Radiographic dye allergy status; Z91.012 Allergy to eggs
CPT/HCPCS: 36415; 71045-TC-FY; 71250-TC; 80048; 80053; 80061; 81003; 82550; 82553; 82962; 83036; 83735; 83880; 84100; 84484; 85025; 85379; 85610; 87040; 87804; 93005; 93306-TC; 94640; 99285-25; G0378; J0131; J3480; J7030

== ENCOUNTER 2019-10-11 08:21 | Day surgery (SDC) | payer BC, OTHER ==
[2019-10-10 13:59] VITALS: BMI 28.1
[2019-10-11] MEDS ORDERED: diphenhydrAMINE HCL 25 MG CAPSULE (FP) PO ONE ×2 (09:00→09:40)
[2019-10-11] MEDS ORDERED: predniSONE 20 MG TABLET (UD) PO ONE (09:00)
[2019-10-11 09:05] LABS: BASO % 0.3 % (0-2.0); HEMATOCRIT 50.6 % (35.4-49); HEMOGLOBIN 16.8 GM/dL (11.7-16.9); LYMPH % 8.3 % (8-40); MCH 30.2 pg (25.7-33.7); MCHC 33.3 g/dl (32.0-35.9); MEAN CELL VOLUME 90.7 fl (80-96); MEAN PLT VOLUME 7.4 fl (7.5-11.1); MONO % 0.7 % (3.8-10.2); NEUT % 90.7 % (42.8-82.8); PLATELET COUNT 266 K/MM3 (134-434); RBC 5.58 M/mm3 (4.00-5.60); RDW 13.9 % (11.9-15.9); WHITE BLOOD COUNT 11.3 K/mm3 (4.0-10.0)
[2019-10-11 09:11] LABS: INR 1.07 (0.83-1.09); PROTHROMBIN TIME (PATIENT) 12.6 SEC (9.7-13.0)
[2019-10-11 12:51] VITALS: TEMP 98.4
[2019-10-11 14:09] VITALS: BP 140/80; PULSE 94
== END 2019-10-11 14:00 | disposition home or self-care (01) ==
LOC: JRADIR 08:21
PROVIDERS: ATTEND Orthopaedic Surgery Orthopaedic Surgery of the Spine
PROC: B01BYZZ Fluoroscopy of Spinal Cord using Other Contrast (ICD-10-PCS; principal; 2019-10-11)
DX: M51.87 Other intervertebral disc disorders, lumbosacral region (principal); M96.1 Postlaminectomy syndrome, not elsewhere classified
CPT/HCPCS: 36415; 62304; 72131-TC; 72265-TC-FY; 76000-TC-FY; 82962; 85025; 85610

== ENCOUNTER 2022-11-24 08:50 | Day surgery (SDC) | payer OTHER ==
[2022-11-20 12:03] VITALS: BMI 28.8
[2022-11-24 11:47] VITALS: PULSE 79; RESP 16; TEMP 98.6
[2022-11-24 12:08] VITALS: BP 105/78
== END 2022-11-24 12:08 | disposition home or self-care (01) ==
LOC: FASU-ENDO 08:50
PROVIDERS: ATTEND Internal Medicine Gastroenterology
PROC: 0DB98ZX Excision of Duodenum, Via Natural or Artificial Opening Endoscopic, Diagnostic (ICD-10-PCS; 2022-11-24)
PROC: 0DB68ZX Excision of Stomach, Via Natural or Artificial Opening Endoscopic, Diagnostic (ICD-10-PCS; 2022-11-24)
PROC: 0DB38ZX Excision of Lower Esophagus, Via Natural or Artificial Opening Endoscopic, Diagnostic (ICD-10-PCS; 2022-11-24)
PROC: 0DJD8ZZ Inspection of Lower Intestinal Tract, Via Natural or Artificial Opening Endoscopic (ICD-10-PCS; principal; 2022-11-24 11:02)
DX: Z12.11 Encounter for screening for malignant neoplasm of colon (principal); K57.30 Diverticulosis of large intestine without perforation or abscess without bleeding; K29.50 Unspecified chronic gastritis without bleeding; K44.9 Diaphragmatic hernia without obstruction or gangrene; K21.00 Gastro-esophageal reflux disease with esophagitis, without bleeding; Z86.010 Personal history of colon polyps; Z98.0 Intestinal bypass and anastomosis status
CPT/HCPCS: 43239; G0105; 82962; 88305-TC; 88342-TC